=== PATIENT | male | born 1975 | race Caucasian/White ===

== ENCOUNTER 2018-05-01 22:12 | Emergency (ER) | payer OTHER ==
[2018-05-01] MEDS ORDERED: LORazepam 2 MG/ML INJ IM STA (22:35)
--- NOTE | 2018-05-01 22:39 | ED ---
General Adult HPI - General Chief complaint: Alcohol Stated complaint: detox Time Seen by Provider: 05/01/18 22:22 Source: patient, EMS, RN notes reviewed Mode of arrival: EMS Limitations: no limitations - History of Present Illness Initial comments: 42-year-old male presents with alcohol intoxication. Patient presented to [facility] for alcohol detoxification and rehabilitation. He was intoxicated , driving his car. He told the staff he was sleeping in his car to morning when he was sober and check himself in. EMS was called and patient was brought to this emergency department for evaluation. He is clinically intoxicated. Denies any physical complaints. Admits to drinking a large amount of alcohol just prior to arrival. He is a daily drinker. He denies suicidal or homicidal ideation. - Related Data Home Medications Medication Instructions Recorded Confirmed buPROPion [Wellbutrin] 1 tab PO DAILY 05/01/18 05/01/18 Allergies Allergy/AdvReac Type Severity Reaction Status Date / Time No Known Allergies Allergy Verified 05/01/18 22:17 Review of Systems ROS Statement: Those systems with pertinent positive or pertinent negative responses have been documented in the HPI. ROS Other: All systems not noted in ROS Statement are negative. Past Medical History Past Medical History: Hypertension History of Any Multi-Drug Resistant Organisms: None Reported Past Surgical History: No Surgical Hx Reported Past Psychological History: Depression Smoking Status: Never smoker Past Alcohol Use History: Abuse, Daily, Heavy Past Drug Use History: None Reported General Exam Limitations: no limitations General appearance: alert, in no apparent distress, appears intoxicated Head exam: Present: atraumatic, normocephalic Eye exam: Present: normal appearance, PERRL ENT exam: Present: normal exam Neck exam: Present: normal inspection. Absent: tenderness, meningismus Respiratory exam: Present: normal lung sounds bilaterally. Absent: respiratory distress, wheezes Cardiovascular Exam: Present: regular rate, normal rhythm GI/Abdominal exam: Present: soft. Absent: distended, tenderness Neurological exam: Present: alert, oriented X3, CN II-XII intact. Absent: motor sensory deficit Psychiatric exam: Present: normal affect, normal mood Skin exam: Present: warm, dry, intact, cyanosis, diaphoretic Course Vital Signs 05/01/18 05/01/18 22:17 23:49 Temperature 98.9 F 98.9 F Pulse Rate 102 H 99 Respiratory 16 18 Rate Blood Pressure 149/91 139/87 O2 Sat by Pulse 98 99 Oximetry Medical Decision Making - Medical Decision Making 43-year-old male with alcohol intoxication. Patient is observed in the emergency department awaiting sobriety. On reevaluation he is clinically sober. He will be discharged and the staff from [facility] will pick the patient up for admission to alcoholic rehabilitation program. Disposition Clinical Impression: Alcoholic intoxication Disposition: HOME SELF-CARE Condition: Good Instructions: Alcohol Intoxication (ED) Is patient prescribed a controlled substance at d/c from ED?: No Referrals: None,Stated [Primary Care Provider] - 1-2 days Time of Disposition: 06:06
[2018-05-02 09:06] VITALS: BP 142/84; PULSE 82; RESP 18; TEMP 97.8
== END 2018-05-02 09:22 | disposition home or self-care (01) ==
LOC: EC 22:12
DX: F10.120 Alcohol abuse with intoxication, uncomplicated (principal); F32.9 Major depressive disorder, single episode, unspecified; Z79.899 Other long term (current) drug therapy
CPT/HCPCS: 82075; 99284; 96372; J2060

== ENCOUNTER 2024-04-20 10:57 | Emergency (ER) | payer SELFPAY | END 2024-04-20 16:45 | disposition home or self-care (01) | LOC: EC 10:57 | DX: F10.129 Alcohol abuse with intoxication, unspecified (principal) | CPT/HCPCS: 82075; 99284 ==